=== PATIENT | male | born 1975 | race Caucasian/White ===

== ENCOUNTER 2022-01-24 16:27 | Emergency (ER) | payer OTHER ==
[2022-01-24 17:41] LABS: HEMOGLOBIN 13.4 gm/dl (14.0-17.5); RED BLOOD COUNT 4.78 M/UL (4.20-5.50)
== END 2022-01-24 22:20 | disposition home or self-care (01) ==
LOC: ER1 16:27
PROVIDERS: Preventive Medicine Occupational Medicine
DX: F11.10 Opioid abuse, uncomplicated (principal); E86.0 Dehydration; F17.200 Nicotine dependence, unspecified, uncomplicated
CPT/HCPCS: 71045; 80053; 80307; 81001; 83690; 85025; 96365; 96376; 99284; J2310; J7030